=== PATIENT | male | born 1945 | race Caucasian/White ===

== ENCOUNTER → 2017-08-02 | Outpatient (CLI) | payer OTHER ==
[~2017-08-02] MED LIST: ALEN1TAB48 PO; ASPI81CH6 CHEW; ASPI81TA23 PO; ATOR20TA15 PO; CETI10 PO; CITRTAB7 PO; CYAN1TAB24 PO; D200CAP PO; DIAZ5TAB PO; FERR325T18 PO; GUAI600T11 PO; HYDR-3288 PO; METF500T4 PO; METO25TA3 PO; MULTTAB4 PO; NITR0.4S SL; OXYC-424 PO; RANI150T PO; SENN8.6T36 PO; TIZA4TAB PO
== END ==
LOC: CPRE 08:38
PROVIDERS: ATTEND Orthopaedic Surgery Sports Medicine
DX: M16.12 Unilateral primary osteoarthritis, left hip (principal)

== ENCOUNTER 2017-08-16 06:46 | Inpatient (IN) | payer OTHER, MEDICARE ==
[~2017-08-16] VITALS: Ht 180.3 cm; Wt 89.6 kg
[~2017-08-16 06:46] MED LIST changes: -ASPI81CH6 CHEW; -FERR325T18 PO; -GUAI600T11 PO; -HYDR-3288 PO; -METO25TA3 PO; -NITR0.4S SL; -SENN8.6T36 PO
[2017-08-16] MEDS ORDERED: METO25TA3 PO ×2 (07:22)
[2017-08-16] MEDS ORDERED: GUAI600T11 PO (07:28)
[2017-08-16] MEDS ORDERED: SENN8.6T36 PO ×2 (07:28)
[2017-08-16] MEDS ORDERED: FERR325T18 PO (07:28)
[2017-08-16] MEDS ORDERED: NITR0.4S SL (07:28)
[2017-08-16] MEDS ORDERED: METOPROLOL TARTRATE 25 MG TAB PO PRN (07:30)
[2017-08-16] MEDS ORDERED: LACTATED RINGER'S 1000 ML IV PRN (07:30)
[2017-08-16] MEDS ORDERED: SODIUM CHLORID 0.9% 500 ML IV PRN (07:30)
[2017-08-16] MEDS ORDERED: CHLORHEXIDINE GLUCONATE 2 % 1 PACK (2 CLOTHS) TOPICAL PRN (07:30)
[2017-08-16] MEDS ORDERED: POVIDONE IODINE 5% (ANTISEPSIS KIT) 4 APPLICATIONS EACH NARE PRN (07:30)
[2017-08-16] MEDS ORDERED: DEXAMETHASONE SOD PHOS 20 MG/5 ML VIAL IV PUSH ONE (07:30)
[2017-08-16] MEDS ORDERED: ceFAZolin 2 GM PREMIX 50 ML IV SCH (07:45)
[2017-08-16] MEDS ORDERED: CHLORHEXIDINE GLUCONATE 4% SOLN 120 ML BTL TOPICAL SCH (07:45)
[2017-08-16] MEDS ORDERED: VANCOMYCIN 1 GM/200 ML PREMIX IV SCH (07:45)
[2017-08-16] MEDS ORDERED: POVIDONE IODINE 7.5% SCRUB 118 ML BOTTLE TOPICAL SCH (07:45)
[2017-08-16] MEDS ORDERED: TRANEXAMIC PERI-ARTICULAR 3,000 MG/NS 100 ML P-ARTICULR SCH ×2 (08:00)
[2017-08-16] MEDS ORDERED: TRANEXAMIC ACID IV SCH (08:00)
[2017-08-16] MEDS ORDERED: EXPAREL PERI-ARTICULAR INJECTION (TOTAL VOL. 60 ML) P-ARTICULR SCH ×2 (08:00)
[2017-08-16] MEDS ORDERED: SODIUM CHLORIDE 0.9% IV SCH (08:00)
[2017-08-16] MEDS ORDERED: HYDR-3288 PO (08:29)
[2017-08-16] MEDS ORDERED: ASPI81CH6 CHEW (08:29)
[2017-08-16] MEDS ORDERED: ACETAMINOPHEN/HYDROcodone 325 MG/7.5 MG TAB PO PRN (08:30)
[2017-08-16] MEDS ORDERED: Post-op Orders (for Pharmacy) XX ONE (08:30)
[2017-08-16] MEDS ORDERED: MORPHINE SULFATE 4 MG/ML INJ IV PUSH PRN (08:30)
[2017-08-16] MEDS ORDERED: diphenhydrAMINE HCL 50 MG/ML VIAL IV PUSH PRN (08:30)
[2017-08-16] MEDS ORDERED: ONDANSETRON HCL 4 MG/2 ML VIAL IVP PRN (08:30)
[2017-08-16] MEDS ORDERED: GENTAMICIN SULFATE 80 MG/2 ML VIAL ONE (08:58)
[2017-08-16] MEDS: METOPROLOL TARTRATE 25 MG TAB PO SCH ×2 (09:00→20:32)
[2017-08-16] MEDS: FERROUS SULFATE 325 MG (65 MG ELEMENTAL IRON) TAB PO SCH ×2 (09:00→17:05)
--- NOTE | 2017-08-16 10:35 | EKG ---
Date Performed: 08/16/2017 Time Performed: 07:09:48 PTAGE: 72 years EKG: Sinus rhythm RIGHT BUNDLE BRANCH BLOCK ANTEROSEPTAL MYOCARDIAL INFARCTION , OF INDETERMINATE AGE ABNORMAL ECG NO PREVIOUS TRACING DOCTOR: Ricki Kenny Interpretating Date/Time 08/16/2017 10:32:25
--- NOTE | 2017-08-16 11:34 | RADRPT ---
EXAM DATE/TIME: 08/16/2017 09:54 [facility] COMPARISON: No previous studies available for comparison. INDICATIONS : Left total hip replacement. MEDICAL HISTORY : None. SURGICAL HISTORY : None. ENCOUNTER: Initial ACUITY: 1 day PAIN SCORE: Non-responsive. LOCATION: Left Hip FINDINGS: Tube magnified C-arm spot views are centered over the hip. A left hip arthroplasty is in good positio n. No gross fracture or dislocation. Some air within the overlying soft tissues. CONCLUSION: Total hip arthroplasty in good position. Ron Mondragon Jr., MD on August 16, 2017 at 11:31 Board Certified Radiologist. This report was verified electronically.
[2017-08-16] MEDS ORDERED: DO NOT ADM ANY ANTICOAGULANT DRUGS PRN (11:38)
[2017-08-16] MEDS ORDERED: HYDROmorphone HCL PF 0.5 MG/0.5 ML SYRINGE ONE ×2 (11:39→11:42)
[2017-08-16] MEDS ORDERED: *MEPERIDINE 25 MG INJ VIAL PERIprocedural Use ONLY ONE (11:46)
[2017-08-16] MEDS ORDERED: MIDAZOLAM HCL 2 MG/2 ML VIAL ONE (11:49)
[2017-08-16] MEDS ORDERED: MORPHINE SULFATE 4 MG/ML INJ ONE (11:49)
[2017-08-16] MEDS ORDERED: LIDOCAINE HCL 1% PF 5 ML SYRINGE OTHER ONE (12:00)
[2017-08-16] MEDS ORDERED: ROCURONIUM INJ 50 MG/5 ML SYRINGE IV PUSH ONE (12:00)
[2017-08-16] MEDS ORDERED: ESMOLOL HCL 100 MG/10 ML VIAL IV ONE (12:00)
[2017-08-16] MEDS ORDERED: PROPOFOL 200 MG/20 ML AMP IV ONE (12:00)
[2017-08-16] MEDS ORDERED: *morphine SULFATE 8 MG/ML PERIprocedure ONLY ONE (12:02)
--- NOTE | 2017-08-16 12:09 | MP ---
cc: Agustin Alvarez MD DATE OF OPERATION: 08/16/2017 PREOPERATIVE DIAGNOSIS: Left hip osteoarthritis. POSTOPERATIVE DIAGNOSIS: Left hip osteoarthritis. PROCEDURE: Left total hip arthroplasty. SURGEON: Agustin Alvarez MD. ANESTHESIA: Aba Pleitez PA-C ANESTHESIA: General. ESTIMATED BLOOD LOSS: 200 mL COMPLICATIONS: None. IMPLANTS USED: DePuy Corail size 15 Press-Fit high offset femoral stem, size 54 solid [place] Gription cup, 36 mm head, +12 neck. JUSTIFICATION: This patient is a 72-year-old male with history of severe end-stage osteoarthritis involving the left hip. He has severe pain with standing, pain with walking, ambulation, weight-bearing activities and severe pain at rest. He has failed greater than three months of nonoperative conservative treatment to include medication therapy, injections, ambulatory assistive aids, home exercise program, activity modification and weight loss. X-rays of the left hip reveal severe osteoarthritis and [id number] joint space narrowing, subchondral sclerosis, subchondral cysts, osteophyte formation, severe subluxation. The patient was counseled as to the risks, benefits and alternatives to a total hip arthroplasty. The risks were discussed which include but not limited to anesthesia, bleeding, infection, damage to nerves, blood vessels, pain, stiffness, fracture dislocation, blood clots, pulmonary embolism and even . The patient's pain is severe. He favored the benefits over the risks and did wish to proceed with surgery. PROCEDURE IN DETAIL: Written consent was obtained. The patient was identified by name, taken to the operating room and placed supine on the operating table. General anesthesia was administered to include 2 grams of IV Ancef and 1 gram of IV vancomycin. Left and right feet were placed in padded traction boots. The left hip and left lower extremity were prepped and draped using isopropyl and Hibiclens solution and ChloraPrep solution. After a timeout was performed, a longitudinal incision was made over the anterolateral aspect of the left hip. The fascia was incised. Dissection was carried over tensor fascia katherine beneath the rectus femoris to allow exposure of the anterior hip capsule. A capsulotomy incision was performed. An oscillating saw was used to perform a femoral neck cut. The osteoarthritic femoral head and neck component was removed. A #10 blade scalpel was used to excise the labrum. Sequential reaming began at size 47 and was carried through to size 54. Subsequently, a solid [place] Gription cup was implanted in approximately 45 degrees of abduction, 10 degrees of anteversion. The 54 mm cup had good purchase and fixation. A screw hole eliminator was placed, followed by the neutral liner. The liner was impacted in place and tested for stability. Attention was turned to the femur where the leg was externally rotated, extended and adducted. The capsule was released off the undersurface of the greater trochanter to allow for elevation and lateralization of the femur. A box cutting osteotome was used to gain entrance into the intramedullary canal of the femur, followed by canal finder and sequential broaching up to size 15. A calcar planer was used to plane the calcar. Trial head and neck combinations were evaluated and final components implanted. With the current components, the leg could achieve external rotation to 78 degrees and extension all the way down to the ground without evidence of anterior instability or impingement. Fluoroscopic imaging showed appropriate implantation of components. The surgical wound was thoroughly irrigated with sterile saline pulse lavage antibiotic impregnated solution. The fascial layer was closed with #1 Vicryl suture, the subcutaneous layer with 2-0 Vicryl suture, the skin incision closed with Dermabond. Sterile dressing was applied. The patient tolerated the procedure well with no intraoperative complication noted. Aba Pleitez, physician assistant unit forester certified, was present through the entire procedure to include patient positioning and the procedure itself. The medical necessity of a physician assistant unit forester was indicated in this case due to the complexity of the procedure. He assisted with appropriate manipulation of the leg and also retraction of muscles, tendons, bone and neurovascular structures. He assisted with preparation of bone and also implantation of the prosthetic replacement. MD BETI Nascimento/VIRGIL , 11:20 AM , 12:08 PM
[2017-08-16] MEDS: SODIUM CHLOR 0.9% 1000 ML INJ 1,000 ML IV SCH ×2 (12:15→18:27)
[2017-08-16] MEDS ORDERED: HYDROmorphone HCL PF 0.5 MG/0.5 ML SYRINGE IV ONE (12:30)
--- NOTE | 2017-08-16 12:31 | RADRPT ---
EXAM DATE/TIME: 08/16/2017 13:04 [facility] COMPARISON: No previous studies available for comparison. INDICATIONS : Post-op left hip. MEDICAL HISTORY : None. SURGICAL HISTORY : None. ENCOUNTER: Initial ACUITY: 1 day PAIN SCORE: 10/10 LOCATION: Left hip. FINDINGS: Status post placement of a left hip prosthesis. There is good position and alignment of the left hip prosthesis. The bony structures are grossly intact. CONCLUSION: Good position and alignment of the left hip prosthesis. Pa Alvarez MD on August 16, 2017 at 12:29 Board Certified Radiologist. This report was verified electronically.
[2017-08-16] MEDS: ACETAMINOPHEN/HYDROcodone 325 MG/7.5 MG TAB PO PRN ×2 (12:45→20:30)
--- NOTE | 2017-08-16 12:53 | HHI.DCPOC ---
Discharge Care Plan Diagnosis: (1) Primary localized osteoarthrosis, pelvic region and thigh Your Health Problems Are: Difficulty with ADL Goals to Promote Your Health * To prevent worsening of your condition and complications * To maintain your health at the optimal level Directions to Meet Your Goals Take your medications as prescribed Follow your dietary instruction Follow activity as directed Keep your appointments as scheduled Take your immunizations and boosters as scheduled If your symptoms worsen call your PCP, if no PCP go to Urgent Care Center or Emergency Room Smoking is Dangerous to Your Health. Avoid second hand smoke Call the 24-hour hour crisis hotline for domestic abuse at Agustin Pleitez August 16, 2017 12:53
[2017-08-16 13:00] VITALS: BP 161/76; PULSE 95; RESP 18; TEMP 98; O2SAT 98
[2017-08-16] MEDS ORDERED: metFORMIN HCL 500 MG TAB PO SCH (13:00)
[2017-08-16] MEDS ORDERED: GLUCAGON 1 MG/ML VIAL OTHER PRN (14:15)
[2017-08-16] MEDS ORDERED: DEXTROSE 50% IN WATER 50 ML VIAL(D50) IV PUSH PRN (14:15)
[2017-08-16] MEDS ORDERED: ENALAPRILAT 1.25 MG/ML VIAL IV PUSH PRN (14:15)
[2017-08-16 14:52] LABS: AUTOMATED NEUTROPHIL # 13.5 TH/MM3 (1.8-7.7); BASOPHIL % 0.1 % (0.0-2.0); HEMATOCRIT 39.4 % (39.0-51.0); HEMOGLOBIN 13.6 GM/DL (13.0-17.0); LYMPH % 3.9 % (9.0-44.0); LYMPHOCYTE # 0.6 TH/MM3 (1.0-4.8); MEAN CELL VOLUME 93.5 FL (80.0-100.0); MEAN CORPUSCULAR HEMOGLOBIN 32.3 PG (27.0-34.0); MEAN CORPUSCULAR HGB CONC 34.6 % (32.0-36.0); MEAN PLATELET VOLUME 10.3 FL (7.0-11.0); MONO % 1.8 % (0.0-8.0); MONOCYTE # 0.3 TH/MM3 (0-0.9); NEUT % 94.2 % (16.0-70.0); PLATELET COUNT 163 TH/MM3 (150-450); RED BLOOD COUNT 4.21 MIL/MM3 (4.50-5.90); WHITE BLOOD COUNT 14.3 TH/MM3 (4.0-11.0)
[2017-08-16 15:19] LABS: CALCIUM 8.4 MG/DL (8.5-10.1); CREATININE 0.77 MG/DL (0.60-1.30)
[2017-08-16] MEDS: oxyCODONE HCL 20 MG CONTROLLED RELEASE TAB PO SCH (17:06)
[2017-08-16] MEDS: FAMOTIDINE 20 MG TAB PO SCH ×2 (17:11→20:31)
[2017-08-16] MEDS: INSULIN ASPART SUPPLEMENTAL SCALE SQ SCH ×2 (17:12→22:23)
[2017-08-16] MEDS: ATORVASTATIN 20 MG TAB PO SCH (20:31)
[2017-08-16] MEDS ORDERED: ZOLPIDEM TARTRATE 5 MG TAB PO PRN (21:00)
[2017-08-16 21:10] VITALS: BP 124/61; PULSE 86; RESP 17; TEMP 98.8; O2SAT 96
[2017-08-17] VITALS (8 sets, daily range): BP systolic 96–143; BP diastolic 55–69; PULSE 75–89; RESP 17–19; TEMP 97.2–99.2; O2SAT 95–100
[2017-08-17] MEDS: ACETAMINOPHEN/HYDROcodone 325 MG/7.5 MG TAB PO PRN ×6 (01:48→23:22)
[2017-08-17] MEDS: SODIUM CHLOR 0.9% 1000 ML INJ 1,000 ML IV SCH ×3 (04:27→19:22)
[2017-08-17 05:19] LABS: HEMATOCRIT 37.6 % (39.0-51.0); HEMOGLOBIN 12.7 GM/DL (13.0-17.0); MEAN CELL VOLUME 94.8 FL (80.0-100.0); MEAN CORPUSCULAR HEMOGLOBIN 31.9 PG (27.0-34.0); MEAN CORPUSCULAR HGB CONC 33.7 % (32.0-36.0); MEAN PLATELET VOLUME 10.8 FL (7.0-11.0); PLATELET COUNT 158 TH/MM3 (150-450); RED BLOOD COUNT 3.97 MIL/MM3 (4.50-5.90); RED CELL DISTRIBUTION WIDTH 13.2 % (11.6-17.2); WHITE BLOOD COUNT 16.6 TH/MM3 (4.0-11.0)
[2017-08-17] MEDS: oxyCODONE HCL 20 MG CONTROLLED RELEASE TAB PO SCH ×2 (05:57→17:18)
--- NOTE | 2017-08-17 08:22 | PD.ORT.PN ---
Subjective Post Op Day #: 1 Subjective Remarks pain bad last night, better this am. Objective Vitals Vital Signs Date Time Temp Pulse Resp B/P (MAP) Pulse Ox O2 Delivery O2 Flow Rate FiO2 08/17/17 05:49 79 143/69 (93) 08/17/17 03:51 98.5 85 19 108/55 (72) 97 08/17/17 00:39 Nasal Cannula 2.00 08/17/17 00:15 98.6 85 18 127/61 (83) 99 08/16/17 21:10 98.8 86 17 124/61 (82) 96 08/16/17 13:30 89 18 162/74 (103) 96 Nasal Cannula 2 08/16/17 13:00 98.5 92 15 153/81 (105) 96 Nasal Cannula 2 08/16/17 13:00 98.0 95 18 161/76 (104) 98 08/16/17 12:30 90 16 158/78 (104) 95 Nasal Cannula 2 08/16/17 12:15 88 12 155/73 (100) 96 Nasal Cannula 2 08/16/17 12:00 87 13 149/72 (97) 96 Nasal Cannula 2 08/16/17 11:45 90 20 162/93 (116) 100 Nasal Cannula 2 08/16/17 11:38 98.2 90 27 157/97 (117) 95 Nasal Cannula 4 I/O 08/16/17 08/16/17 08/16/17 08/17/17 08/17/17 08/17/17 07:00 15:00 23:00 07:00 15:00 23:00 Intake Total 1520 ml 480 ml Output Total 200 ml 700 ml Balance 1320 ml -220 ml Intake Oral 10 ml 480 ml IV Total 110 ml Other 1400 ml Output Urine Total 700 ml Estimated Blood Loss 200 ml # Bowel Movements 0 Result Diagram: 08/17/17 0420 08/16/17 1436 Imaging Last 24 hours Impressions Hip and Pelvis X-Ray 08/16/17 0823 Signed Impressions: Service Date/Time: Wednesday, August 16, 2017 13:04 - CONCLUSION: Good position and alignment of the left hip prosthesis. Pa Alvarez MD Objective Remarks in bed, nad dressing c/d/i neg homans nvi Assessment & Plan Ortho Post Op Day #: 1 Problem List: Assessment and Plan s/p L BRANDI anterior approach wbat ok to maintain dressing unless saturated lovenox, d/c on asa 81 PT ice d/c planning home with c and pt - cleared today or tomorrow depending on PT f/up dr. gary 2 weeks Agustin Pleitez August 17, 2017 08:22
--- NOTE | 2017-08-17 08:24 | HHI.FF ---
Face to Face Verification Diagnosis: (1) Primary localized osteoarthrosis, pelvic region and thigh Physical Therapy Gait training, Safety evaluation, Transfer training, bed to chair Hip: Total hip, Protocol: Left, Progress to weight bearing Left LE Weight Bearing: WB as tolerated Nursing Nursing: Dressing changes Dressing Changes: Daily dressing change I have seen patient Raul Chambers on 08/17/17. My clinical findings support the need for the requested home health care services because: Limited ability to care for self High risk of falls I certify that my clinical findings support that this patient is homebound because: Post-op weakness Unsteady gait/balance Agustin Pleitez August 17, 2017 08:23
[2017-08-17] MEDS: INSULIN ASPART SUPPLEMENTAL SCALE SQ SCH ×4 (08:39→21:00)
[2017-08-17] MEDS: FAMOTIDINE 20 MG TAB PO SCH ×2 (08:40→19:20)
[2017-08-17] MEDS: METOPROLOL TARTRATE 25 MG TAB PO SCH ×2 (08:40→19:20)
[2017-08-17] MEDS: FERROUS SULFATE 325 MG (65 MG ELEMENTAL IRON) TAB PO SCH ×2 (08:40→17:18)
--- NOTE | 2017-08-17 09:40 | HHI.PR ---
Objective Vitals Vital Signs Date Time Temp Pulse Resp B/P (MAP) Pulse Ox O2 Delivery O2 Flow Rate FiO2 08/17/17 08:30 97.8 78 18 131/62 (85) 99 08/17/17 05:49 79 143/69 (93) 08/17/17 03:51 98.5 85 19 108/55 (72) 97 08/17/17 00:39 Nasal Cannula 2.00 08/17/17 00:15 98.6 85 18 127/61 (83) 99 08/16/17 21:10 98.8 86 17 124/61 (82) 96 08/16/17 13:30 89 18 162/74 (103) 96 Nasal Cannula 2 08/16/17 13:00 98.5 92 15 153/81 (105) 96 Nasal Cannula 2 08/16/17 13:00 98.0 95 18 161/76 (104) 98 08/16/17 12:30 90 16 158/78 (104) 95 Nasal Cannula 2 08/16/17 12:15 88 12 155/73 (100) 96 Nasal Cannula 2 08/16/17 12:00 87 13 149/72 (97) 96 Nasal Cannula 2 08/16/17 11:45 90 20 162/93 (116) 100 Nasal Cannula 2 08/16/17 11:38 98.2 90 27 157/97 (117) 95 Nasal Cannula 4 I/O 08/16/17 08/16/17 08/16/17 08/17/17 08/17/17 08/17/17 07:00 15:00 23:00 07:00 15:00 23:00 Intake Total 1520 ml 480 ml Output Total 200 ml 700 ml Balance 1320 ml -220 ml Intake Oral 10 ml 480 ml IV Total 110 ml Other 1400 ml Output Urine Total 700 ml Estimated Blood Loss 200 ml # Bowel Movements 0 Result Diagram: 08/17/17 0420 08/16/17 1436 Nadia Scruggs PA-C August 17, 2017 9:40 am
--- NOTE | 2017-08-17 09:43 | PD.CONS ---
HPI Service [facility] Hospitalists Consult Requested By Dr. Alvarez Reason for Consult Medical management Primary Care Physician Abi Villegas MD Diagnoses: History of Present Illness 72-year-old male with history of CAD s/p stents 3, HTN, HLD, DM, GERD, arthritis, admitted to [facility] for left total hip arthroplasty by Dr. Alvarez. Hospitalist consulted for medical management. Patient is seen on postop day 1. He has no specific medical complaints including no fever/chills, lightheadedness, dizziness, chest pain, shortness breath, or abdominal complaints. His last bowel movement was 2 days ago on Wednesday. He states he has Senokot at home. Reports his left hip pain is fairly well-controlled with pain medications. He has no other medical complaints to report at this time. Review of Systems Except as stated in HPI: all other systems reviewed are Neg Past Family Social History Allergies: Coded Allergies: No Known Allergies (Unverified , 08/16/17) Past Medical History CAD s/p stents 3 HTN HLD DM on metformin GERD arthritis Past Surgical History Cardiac catheterizations in 2000 and 2008 with total 3 stents placed Appendectomy Umbilical hernia repair Left shoulder rotator cuff repair 2 Right facial surgery status post trauma Reported Medications Eminence (Hydrocodone-Acetaminophen) 7.5-325 mg Tab 1-2 Tab PO Q6H PRN Aspirin Low Dose (Aspirin) 81 Mg Chew 81 Mg CHEW BID 30 Days Reported Nitrostat SL (Nitroglycerin) 0.4 Mg Subl 0.4 Mg SL DIRECTED PRN 1 tablet under the tongue as needed for chest pain. Repeat every 5 minutes for a total of 3 DOSES or call 911 if NO relief. Mucus Relief ER (Guaifenesin) 600 Mg Tab 600 Mg PO BID PRN Ferrous Sulfate 325 Mg (65 Mg Iron) Tablet 130 Mg PO BIDPC Senna-Tabs (Sennosides) 8.6 Mg Tab 17.2 Mg PO BID Metoprolol Tartrate 25 Mg Tab 12.5 Mg PO BID Tizanidine (Tizanidine HCl) 4 Mg Tab 4 Mg PO TID Atorvastatin (Atorvastatin Calcium) 20 Mg Tab 20 Mg PO HS Ranitidine (Ranitidine HCl) 150 Mg Tab 150 Mg PO BID Oxycodone ER (Oxycodone HCl) 15 Mg Tab 1 Tab PO Q6HR PRN Metformin ER (Metformin HCl) 500 Mg Fab 500 Mg PO DAILY With evening meal B12 (Cyanocobalamin) 1,000 Mcg Tab 5,000 Unit PO DAILY Multi Vitamin Mens (Multiple Vitamin) 1 Tab Tab 1 Tab PO DAILY Citracal + D3 Maximum (Calcium Citrate-Vitamin D) 315-250 Mg-Unit Tab 1 Tab PO BID D3 Super Strength (Cholecalciferol) 2,000 Unit Cap 2,000 Units PO BID Aspirin EC (Aspirin) 81 Mg Tabdr 81 Mg PO DAILY Alendronate (Alendronate Sodium) 70 Mg Tab 70 Mg PO WEDNESDAY Active Ordered Medications Current Medications Medications (Trade) Dose Ordered Sig/Tomás Route Start Time Stop Time Status Last Admin Lactated Ringer's 1,000 ml @ 30 mls/hr Q24H PRN IV 08/16/17 07:30 08/19/17 07:29 08/16/17 07:45 Sodium Chloride 500 ml @ 30 mls/hr [id number] PRN IV 08/16/17 07:30 08/19/17 07:29 (Lopressor) 25 mg POOL TABLE OPERATOR PRN PO 08/16/17 07:30 08/19/17 07:29 (Betadine 5% Antisepsis Kit) 1 applic POOL TABLE OPERATOR PRN EACH NARE 08/16/17 07:30 08/19/17 07:29 08/16/17 07:45 (Chlorhexidine 2% Cloth) 3 pack POOL TABLE OPERATOR PRN TOPICAL 08/16/17 07:30 08/19/17 07:29 08/16/17 07:45 (Betadine 7.5% Scrub) 1 applic ONCE TOPICAL 08/16/17 07:45 08/19/17 07:44 (Hibiclens 4% Top Soln) 1 applic ONCE TOPICAL 08/16/17 07:45 08/19/17 07:44 08/16/17 07:45 Cefazolin Sodium/ Dextrose 50 ml @ 100 mls/hr POOL TABLE OPERATOR IV 08/16/17 07:45 08/19/17 07:44 08/16/17 09:22 Vancomycin/Sodium Chloride 200 ml @ 200 mls/hr POOL TABLE OPERATOR IV 08/16/17 07:45 08/19/17 07:44 08/16/17 09:22 (Lipitor) 20 mg HS PO 08/16/17 21:00 08/16/17 20:31 (Ferrous Sulfate) 130 mg BIDPC PO 08/16/17 09:00 08/17/17 08:40 (Lopressor) 12.5 mg BID PO 08/16/17 09:00 08/17/17 08:40 (Zanaflex) 4 mg TID PO 08/16/17 13:00 08/17/17 12:11 (OxyCONTIN CR) 20 mg Q12H PO 08/16/17 17:00 08/17/17 05:57 (Pepcid) 20 mg BID PO 08/16/17 13:00 08/17/17 08:40 Sodium Chloride 1,000 ml @ 100 mls/hr Q10H IV 08/16/17 08:27 08/16/17 12:15 (Lovenox Inj) 40 mg Q24H SQ 08/17/17 10:30 08/26/17 10:31 08/17/17 10:05 (Morphine Inj) 3 mg Q3H PRN IV PUSH 08/16/17 08:30 (Eminence 7.5-325 Mg) 1 tab Q4H PRN PO 08/16/17 08:30 (Eminence 7.5-325 Mg) 2 tab Q4H PRN PO 08/16/17 08:30 08/17/17 10:04 (Theragran M Tab) 1 tab BID PO 08/17/17 21:00 10/16/17 20:59 (Zofran Inj) 4 mg Q6H PRN IVP 08/16/17 08:30 (Colace) 100 mg BID PO 08/17/17 21:00 (Ambien) 5 mg HS PRN PO 08/16/17 21:00 (Benadryl Inj) 25 mg Q6H PRN IV PUSH 08/16/17 08:30 (NovoLOG SUPPLEMENTAL SCALE) 1 ACHS SLIDING SCALE SQ 08/16/17 17:00 08/17/17 12:44 (Glucagon Inj) 1 mg UNSCH PRN OTHER 08/16/17 14:15 (D50w (Vial) Inj) 50 ml UNSCH PRN IV PUSH 08/16/17 14:15 (Vasotec Inj) 1.25 mg Q6H PRN IV PUSH 08/16/17 14:15 Family History Father with enlarged heart, with bone cancer Mother with dementia Sister with CABG 3 vessels Brother with extensive heart disease Social History Prior tobacco use, smoked 1 to 1.5 PPD 43 years, quit in 2000 Denies any alcohol use Denies any illicit drug use Physical Exam Vital Signs Vital Signs Date Time Temp Pulse Resp B/P (MAP) Pulse Ox O2 Delivery O2 Flow Rate FiO2 08/17/17 08:30 97.8 78 18 131/62 (85) 99 08/17/17 05:49 79 143/69 (93) 08/17/17 03:51 98.5 85 19 108/55 (72) 97 08/17/17 00:39 Nasal Cannula 2.00 08/17/17 00:15 98.6 85 18 127/61 (83) 99 08/16/17 21:10 98.8 86 17 124/61 (82) 96 08/16/17 13:30 89 18 162/74 (103) 96 Nasal Cannula 2 08/16/17 13:00 98.5 92 15 153/81 (105) 96 Nasal Cannula 2 08/16/17 13:00 98.0 95 18 161/76 (104) 98 08/16/17 12:30 90 16 158/78 (104) 95 Nasal Cannula 2 08/16/17 12:15 88 12 155/73 (100) 96 Nasal Cannula 2 08/16/17 12:00 87 13 149/72 (97) 96 Nasal Cannula 2 08/16/17 11:45 90 20 162/93 (116) 100 Nasal Cannula 2 08/16/17 11:38 98.2 90 27 157/97 (117) 95 Nasal Cannula 4 Physical Exam GENERAL: Well-nourished, well-developed pleasant elderly male patient in [facility]. SKIN: Warm and dry. No rash. HEAD: Normocephalic. Atraumatic. EYES: Pupils equal and round. No scleral icterus. No injection or drainage. ENT: No nasal bleeding or discharge. Mucous membranes pink and moist. NECK: Supple. Trachea midline. CARDIOVASCULAR: Regular rate and rhythm. No murmur appreciated. RESPIRATORY: No accessory muscle use. Clear to auscultation. Breath sounds equal bilaterally. GASTROINTESTINAL: Abdomen soft, non-tender, nondistended. Normoactive bowel sounds x4. MUSCULOSKELETAL: No obvious deformities. Extremities without clubbing, cyanosis , or edema. Left hip surgical dressing, CDI. NEUROLOGICAL: Awake and alert. No obvious cranial nerve deficits. Motor grossly within normal limits. Moving all extremities spontaneously. Normal speech. PSYCHIATRIC: Appropriate mood and affect; insight and judgment normal. Laboratory Laboratory Tests Test 08/16/17 14:36 08/17/17 04:20 White Blood Count 14.3 16.6 Red Blood Count 4.21 3.97 Hemoglobin 13.6 12.7 Hematocrit 39.4 37.6 Mean Corpuscular Volume 93.5 94.8 Mean Corpuscular Hemoglobin 32.3 31.9 Mean Corpuscular Hemoglobin Concent 34.6 33.7 Red Cell Distribution Width 13.0 13.2 Platelet Count 163 158 Mean Platelet Volume 10.3 10.8 Neutrophils (%) (Auto) 94.2 Lymphocytes (%) (Auto) 3.9 Monocytes (%) (Auto) 1.8 Eosinophils (%) (Auto) 0.0 Basophils (%) (Auto) 0.1 Neutrophils # (Auto) 13.5 Lymphocytes # (Auto) 0.6 Monocytes # (Auto) 0.3 Eosinophils # (Auto) 0.0 Basophils # (Auto) 0.0 CBC Comment DIFF FINAL Differential Comment Blood Urea Nitrogen 15 Creatinine 0.77 Random Glucose 147 Calcium Level 8.4 Sodium Level 142 Potassium Level 4.0 Chloride Level 108 Carbon Dioxide Level 27.0 Anion Gap 7 Estimat Glomerular Filtration Rate 100 Result Diagram: 08/17/17 0420 08/16/17 1436 Imaging Last Impressions Hip and Pelvis X-Ray 08/16/17 0827 Signed Impressions: Service Date/Time: Wednesday, August 16, 2017 13:04 - CONCLUSION: Good position and alignment of the left hip prosthesis. Pa Alvarez MD Hip X-Ray 08/16/17 0000 Signed Impressions: Service Date/Time: Wednesday, August 16, 2017 09:54 - CONCLUSION: Total hip arthroplasty in good position. Ron Mondragon Jr., MD Assessment and Plan Assessment and Plan 72-year-old male with history of CAD s/p stents 3, HTN, HLD, DM, GERD, arthritis, admitted to [facility] for left total hip arthroplasty by Dr. Alvarez. Hospitalist consulted for medical management. S/p Left Total Hip Arthroplasty: surgery done 08/[address] Alvarez. -Continue pain control with Eminence prn, per ortho -DVT prophylaxis with Lovenox per ortho, plan to d/c on aspirin 81mg bid -WBAT -Continue PT HTN/HLD: Chronic, stable -Continue patient's statin, metoprolol 12.5 mg bid -Monitor BP, adjust antihypertensives as needed CAD: s/p stents x3 in 2000, 2008. Chronic. No complaints of chest pain. -Continue patient's aspirin, statin, BB Diabetes Mellitus, type 2: chronic, BG fairly well controlled -Continue SSI for now -Plan to continue patient's metformin upon discharge All other medical conditions stable, continue home medications as appropriate. DVT Prophylaxis: on Lovenox sq Discussed Condition With Patient, RN Nadia Scruggs PA-C August 17, 2017 9:43 am
[2017-08-17] MEDS: ENOXAPARIN SODIUM 40 MG/0.4 ML SYRINGE SQ SCH (10:05)
[2017-08-17] MEDS: MULTIVITAMINS/MINERALS THERAPEUTIC TAB PO SCH (19:20)
[2017-08-17] MEDS: ATORVASTATIN 20 MG TAB PO SCH (19:20)
[2017-08-17] MEDS: DOCUSATE SODIUM 100 MG CAP PO SCH (19:20)
[2017-08-18] VITALS: BP 117/52; PULSE 96; RESP 20; TEMP 98.5; O2SAT 98
[2017-08-18] MEDS: ACETAMINOPHEN/HYDROcodone 325 MG/7.5 MG TAB PO PRN ×3 (04:01→12:54)
[2017-08-18] MEDS: MAGNESIUM HYDROXIDE SUSP 30 ML CUP PO PRN ×2 (05:16→18:03)
[2017-08-18] MEDS: oxyCODONE HCL 20 MG CONTROLLED RELEASE TAB PO SCH ×2 (05:16→17:11)
[2017-08-18 08:00] VITALS: BP 125/61; PULSE 90; RESP 17; TEMP 98.3; O2SAT 94
[2017-08-18] MEDS: INSULIN ASPART SUPPLEMENTAL SCALE SQ SCH ×4 (08:00→20:58)
[2017-08-18 08:04] LABS: AUTOMATED NEUTROPHIL # 11.1 TH/MM3 (1.8-7.7); BASOPHIL % 0.2 % (0.0-2.0); EOSINOPHIL % 0.2 % (0.0-4.0); HEMOGLOBIN 12.1 GM/DL (13.0-17.0); LYMPH % 9.3 % (9.0-44.0); LYMPHOCYTE # 1.3 TH/MM3 (1.0-4.8); MEAN CELL VOLUME 94.6 FL (80.0-100.0); MEAN CORPUSCULAR HEMOGLOBIN 31.8 PG (27.0-34.0); MEAN CORPUSCULAR HGB CONC 33.6 % (32.0-36.0); MEAN PLATELET VOLUME 10.3 FL (7.0-11.0); MONO % 11.6 % (0.0-8.0); MONOCYTE # 1.6 TH/MM3 (0-0.9); NEUT % 78.7 % (16.0-70.0); PLATELET COUNT 142 TH/MM3 (150-450); RED CELL DISTRIBUTION WIDTH 13.4 % (11.6-17.2); WHITE BLOOD COUNT 14.1 TH/MM3 (4.0-11.0)
[2017-08-18 08:25] LABS: AST (GOT) 23 U/L (15-37); BICARBONATE 29.5 MEQ/L (21.0-32.0); BLOOD UREA NITROGEN 11 MG/DL (7-18); CALCIUM 8.6 MG/DL (8.5-10.1); CHLORIDE 106 MEQ/L (98-107); CREATININE 0.72 MG/DL (0.60-1.30); GLOMERULAR FILTRATION RATE 108 ML/MIN (>89); GLUCOSE,RANDOM 140 MG/DL (74-106); SODIUM (NA) 141 MEQ/L (136-145)
[2017-08-18 08:26] LABS: ALT (GPT) 18 U/L (12-78)
[2017-08-18 08:29] LABS: ALKALINE PHOSPHATASE 51 U/L (45-117); TOTAL BILIRUBIN ADULT 0.9 MG/DL (0.2-1.0); TOTAL PROTEIN 6.2 GM/DL (6.4-8.2)
[2017-08-18] MEDS: FAMOTIDINE 20 MG TAB PO SCH ×2 (08:37→21:01)
[2017-08-18] MEDS: DOCUSATE SODIUM 100 MG CAP PO SCH ×2 (08:38→21:00)
[2017-08-18] MEDS: MULTIVITAMINS/MINERALS THERAPEUTIC TAB PO SCH ×2 (08:38→21:01)
[2017-08-18] MEDS: METOPROLOL TARTRATE 25 MG TAB PO SCH ×2 (08:38→21:00)
[2017-08-18] MEDS: FERROUS SULFATE 325 MG (65 MG ELEMENTAL IRON) TAB PO SCH ×2 (08:38→17:11)
--- NOTE | 2017-08-18 09:34 | HHI.PR ---
Subjective Remarks Follow up for left BRANDI, HTN, DM, leukocytosis. The patient reports he had a lot of left hip pain last night, but slightly better today. He has not yet attempted ambulation today. Denies any other medical complaints including no fevers/chills, lightheadedness, dizziness, chest pain, shortness of breath, or abdominal complaints. Objective Vitals Vital Signs Date Time Temp Pulse Resp B/P (MAP) Pulse Ox O2 Delivery O2 Flow Rate FiO2 08/18/17 08:00 98.3 90 17 125/61 (82) 94 08/18/17 00:00 98.5 96 20 117/52 (73) 98 08/17/17 20:00 99.2 89 17 136/63 (87) 96 08/17/17 16:10 97.2 83 18 137/65 (89) 100 08/17/17 11:30 97.2 75 18 96/56 (69) 95 08/17/17 10:35 98 21 I/O 08/17/17 08/17/17 08/17/17 08/18/17 08/18/17 08/18/17 07:00 15:00 23:00 07:00 15:00 23:00 Intake Total 480 ml 960 ml 500 ml Output Total 700 ml 500 ml Balance -220 ml 960 ml 0 ml Intake Oral 480 ml 960 ml 500 ml Output Urine Total 700 ml 500 ml # Voids 5 # Bowel Movements 0 0 0 Result Diagram: 08/18/17 0614 08/18/17 0614 Imaging Last Impressions Hip and Pelvis X-Ray 08/16/17 0827 Signed Impressions: Service Date/Time: Wednesday, August 16, 2017 13:04 - CONCLUSION: Good position and alignment of the left hip prosthesis. Pa Alvarez MD Hip X-Ray 08/16/17 0000 Signed Impressions: Service Date/Time: Wednesday, August 16, 2017 09:54 - CONCLUSION: Total hip arthroplasty in good position. Ron Mondragon Jr., MD Objective Remarks GENERAL: Well-nourished, well-developed pleasant elderly male patient in [facility]. SKIN: Warm and dry. No rash. HEENT: Normocephalic. Atraumatic. Old right facial/orbit scarring from trauma. Pupils equal and round. Mucous membranes pink and moist. CARDIOVASCULAR: Regular rate and rhythm. No murmur appreciated. RESPIRATORY: No accessory muscle use. Clear to auscultation. Breath sounds equal bilaterally. GASTROINTESTINAL: Abdomen soft, non-tender, nondistended. Normoactive bowel sounds x4. MUSCULOSKELETAL: No obvious deformities. Extremities without clubbing, cyanosis , or edema. Left hip surgical dressing, CDI. NEUROLOGICAL: Awake and alert. No obvious cranial nerve deficits. Motor grossly within normal limits. Moving all extremities spontaneously. Normal speech. PSYCHIATRIC: Appropriate mood and affect; insight and judgment normal. Procedures 08/16/17 - left total hip arthroplasty by Dr. Alvarez Medications and IVs Current Medications Medications (Trade) Dose Ordered Sig/Tomás Route Start Time Stop Time Status Last Admin Lactated Ringer's 1,000 ml @ 30 mls/hr Q24H PRN IV 08/16/17 07:30 08/19/17 07:29 08/16/17 07:45 Sodium Chloride 500 ml @ 30 mls/hr [id number] PRN IV 08/16/17 07:30 08/19/17 07:29 (Lopressor) 25 mg SINGER AND UNLOADER PRN PO 08/16/17 07:30 08/19/17 07:29 (Betadine 5% Antisepsis Kit) 1 applic SINGER AND UNLOADER PRN EACH NARE 08/16/17 07:30 08/19/17 07:29 08/16/17 07:45 (Chlorhexidine 2% Cloth) 3 pack SINGER AND UNLOADER PRN TOPICAL 08/16/17 07:30 08/19/17 07:29 08/16/17 07:45 (Betadine 7.5% Scrub) 1 applic ONCE TOPICAL 08/16/17 07:45 08/19/17 07:44 (Hibiclens 4% Top Soln) 1 applic ONCE TOPICAL 08/16/17 07:45 08/19/17 07:44 08/16/17 07:45 Cefazolin Sodium/ Dextrose 50 ml @ 100 mls/hr SINGER AND UNLOADER IV 08/16/17 07:45 08/19/17 07:44 08/16/17 09:22 Vancomycin/Sodium Chloride 200 ml @ 200 mls/hr SINGER AND UNLOADER IV 08/16/17 07:45 08/19/17 07:44 08/16/17 09:22 (Lipitor) 20 mg HS PO 08/16/17 21:00 08/17/17 19:20 (Ferrous Sulfate) 130 mg BIDPC PO 08/16/17 09:00 08/18/17 08:38 (Lopressor) 12.5 mg BID PO 08/16/17 09:00 08/18/17 08:38 (Zanaflex) 4 mg TID PO 08/16/17 13:00 08/18/17 08:38 (OxyCONTIN CR) 20 mg Q12H PO 08/16/17 17:00 08/18/17 05:16 (Pepcid) 20 mg BID PO 08/16/17 13:00 08/18/17 08:37 Sodium Chloride 1,000 ml @ 100 mls/hr Q10H IV 08/16/17 08:27 08/16/17 12:15 (Lovenox Inj) 40 mg Q24H SQ 08/17/17 10:30 08/26/17 10:31 08/17/17 10:05 (Morphine Inj) 3 mg Q3H PRN IV PUSH 08/16/17 08:30 ([place] 7.5-325 Mg) 1 tab Q4H PRN PO 08/16/17 08:30 ([place] 7.5-325 Mg) 2 tab Q4H PRN PO 08/16/17 08:30 08/18/17 08:42 (Theragran M Tab) 1 tab BID PO 08/17/17 21:00 10/16/17 20:59 08/18/17 08:38 (Zofran Inj) 4 mg Q6H PRN IVP 08/16/17 08:30 (Colace) 100 mg BID PO 08/17/17 21:00 08/18/17 08:38 (Ambien) 5 mg HS PRN PO 08/16/17 21:00 (Benadryl Inj) 25 mg Q6H PRN IV PUSH 08/16/17 08:30 (NovoLOG SUPPLEMENTAL SCALE) 1 ACHS SLIDING SCALE SQ 08/16/17 17:00 08/17/17 21:00 (Glucagon Inj) 1 mg UNSCH PRN OTHER 08/16/17 14:15 (D50w (Vial) Inj) 50 ml UNSCH PRN IV PUSH 08/16/17 14:15 (Vasotec Inj) 1.25 mg Q6H PRN IV PUSH 08/16/17 14:15 (Milk Of Franky Rodgers) 30 ml BID PRN PO 08/17/17 23:45 08/18/17 05:16 A/P Assessment and Plan 72-year-old male with history of CAD s/p stents 3, HTN, HLD, DM, GERD, arthritis, admitted to [facility] for left total hip arthroplasty by Dr. Alvarez. Hospitalist consulted for medical management. S/p Left Total Hip Arthroplasty: surgery done 08/[address] Alvarez. -Continue pain control with [place] prn, per ortho -DVT prophylaxis with Lovenox per ortho, plan to d/c on aspirin 81mg bid -WBAT -Continue PT HTN/HLD: Chronic, stable, BP well controlled currently -Continue patient's statin, metoprolol 12.5 mg bid -Monitor BP, adjust antihypertensives as needed CAD: s/p stents x3 in 2000, 2008. Chronic. No complaints of chest pain. -Continue patient's aspirin, statin, BB Diabetes Mellitus, type 2: chronic, BG fairly well controlled -Continue SSI for now -Plan to continue patient's metformin upon discharge Leukocytosis: WBC trended 14.3K --> 16.6K --> 14.1K -trending down -no signs of systemic infection, afebrile, no tachycardia All other medical conditions stable, continue home medications as appropriate. DVT Prophylaxis: on Lovenox sq Nadia Scruggs PA-C August 18, 2017 9:34 am
[2017-08-18] MEDS: SODIUM CHLOR 0.9% 1000 ML INJ 1,000 ML IV SCH ×2 (10:27→20:27)
--- NOTE | 2017-08-18 10:49 | PD.ORT.PN ---
Subjective Post Op Day #: 2 Subjective Remarks pain better today. still having some trouble with PT. Objective Vitals Vital Signs Date Time Temp Pulse Resp B/P (MAP) Pulse Ox O2 Delivery O2 Flow Rate FiO2 08/18/17 08:00 98.3 90 17 125/61 (82) 94 08/18/17 00:00 98.5 96 20 117/52 (73) 98 08/17/17 20:00 99.2 89 17 136/63 (87) 96 08/17/17 16:10 97.2 83 18 137/65 (89) 100 08/17/17 11:30 97.2 75 18 96/56 (69) 95 I/O 08/17/17 08/17/17 08/17/17 08/18/17 08/18/17 08/18/17 07:00 15:00 23:00 07:00 15:00 23:00 Intake Total 480 ml 960 ml 500 ml Output Total 700 ml 500 ml Balance -220 ml 960 ml 0 ml Intake Oral 480 ml 960 ml 500 ml Output Urine Total 700 ml 500 ml # Voids 5 # Bowel Movements 0 0 0 Result Diagram: 08/18/1761308/18/17613 Imaging Last 24 hours Impressions Hip and Pelvis X-Ray 08/16/17826 Signed Impressions: Service Date/Time: Wednesday, August 16, 2017 13:04 - CONCLUSION: Good position and alignment of the left hip prosthesis. Pa Alvarez MD Objective Remarks in chair, nad dressing c/d/i thigh soft neg homans nvi Assessment & Plan Ortho Post Op Day #: 2 Problem List: Assessment and Plan s/p L BRANDI anterior approach wbat ok to maintain dressing unless saturated lovenox, d/c on asa 81 PT ice d/c planning home with hhc and pt - cleared today pending PT eval f/up dr. gary 2 weeks Agustin Pleitez August 18, 2017 10:49
[2017-08-18] MEDS: ENOXAPARIN SODIUM 40 MG/0.4 ML SYRINGE SQ SCH (11:45)
[2017-08-18 12:00] VITALS: BP 101/58; PULSE 76; RESP 17; TEMP 97.3; O2SAT 95
[2017-08-18 16:00] VITALS: BP 99/57; PULSE 81; RESP 17; TEMP 97.5; O2SAT 97
[2017-08-18 20:00] VITALS: BP 94/49; PULSE 78; RESP 17; TEMP 98.1; O2SAT 94
[2017-08-18] MEDS: ATORVASTATIN 20 MG TAB PO SCH (21:01)
[2017-08-19] VITALS: BP 142/70; PULSE 93; RESP 20; TEMP 99; O2SAT 98
[2017-08-19] MEDS: ACETAMINOPHEN/HYDROcodone 325 MG/7.5 MG TAB PO PRN ×3 (01:18→10:38)
[2017-08-19 04:00] VITALS: BP 129/59; PULSE 90; RESP 20; TEMP 98.5; O2SAT 94
[2017-08-19] MEDS: oxyCODONE HCL 20 MG CONTROLLED RELEASE TAB PO SCH (04:07)
[2017-08-19] MEDS: SODIUM CHLOR 0.9% 1000 ML INJ 1,000 ML IV SCH (04:54)
[2017-08-19] MEDS: MAGNESIUM HYDROXIDE SUSP 30 ML CUP PO PRN (05:30)
[2017-08-19 06:46] LABS: HEMATOCRIT 34.1 % (39.0-51.0); HEMOGLOBIN 11.5 GM/DL (13.0-17.0); MEAN CELL VOLUME 94.2 FL (80.0-100.0); MEAN CORPUSCULAR HEMOGLOBIN 31.8 PG (27.0-34.0); MEAN CORPUSCULAR HGB CONC 33.8 % (32.0-36.0); MEAN PLATELET VOLUME 10.4 FL (7.0-11.0); PLATELET COUNT 140 TH/MM3 (150-450); RED BLOOD COUNT 3.62 MIL/MM3 (4.50-5.90); RED CELL DISTRIBUTION WIDTH 12.9 % (11.6-17.2); WHITE BLOOD COUNT 11.2 TH/MM3 (4.0-11.0)
[2017-08-19] MEDS: INSULIN ASPART SUPPLEMENTAL SCALE SQ SCH (08:00)
[2017-08-19 08:03] VITALS: BP 129/59; PULSE 89; RESP 19; TEMP 98.2; O2SAT 97
--- NOTE | 2017-08-19 08:54 | PD.ORT.PN ---
Subjective Post Op Day #: 3 Subjective Remarks pain better today. Objective Vitals Vital Signs Date Time Temp Pulse Resp B/P (MAP) Pulse Ox O2 Delivery O2 Flow Rate FiO2 08/19/17 08:03 98.2 89 19 129/59 (82) 97 08/19/17 06:03 18 08/19/17 04:53 18 08/19/17 04:00 98.5 90 20 129/59 (82) 94 08/19/17 00:00 99.0 93 20 142/70 (94) 98 08/18/17 20:00 98.1 78 17 94/49 (64) 94 08/18/17 16:00 97.5 81 17 99/57 (71) 97 08/18/17 12:00 97.3 76 17 101/58 (72) 95 I/O 08/18/17 08/18/17 08/18/17 08/19/17 08/19/17 08/19/17 07:00 15:00 23:00 07:00 15:00 23:00 Intake Total 500 ml 500 ml 800 ml Output Total 500 ml 800 ml Balance 0 ml 500 ml 0 ml Intake Oral 500 ml 500 ml 800 ml Output Urine Total 500 ml 800 ml # Voids 4 # Bowel Movements 0 1 0 Result Diagram: 08/19/17 0513 08/18/17 0614 Imaging Last 24 hours Impressions Hip and Pelvis X-Ray 08/16/17 0827 Signed Impressions: Service Date/Time: Wednesday, August 16, 2017 13:04 - CONCLUSION: Good position and alignment of the left hip prosthesis. Pa Alvarez MD Objective Remarks in bed, nad dressing c/d/i thigh soft neg homans nvi Assessment & Plan Ortho Post Op Day #: 3 Problem List: Assessment and Plan s/p L BRANDI anterior approach wbat ok to maintain dressing unless saturated lovenox, d/c on asa 81 PT ice d/c planning home with hhc and pt - cleared today f/up dr. agry 2 weeks Agustin Pleitez August 19, 2017 08:54
[2017-08-19] MEDS: METOPROLOL TARTRATE 25 MG TAB PO SCH (08:55)
[2017-08-19] MEDS: FAMOTIDINE 20 MG TAB PO SCH (08:55)
[2017-08-19] MEDS: DOCUSATE SODIUM 100 MG CAP PO SCH (08:55)
[2017-08-19] MEDS: FERROUS SULFATE 325 MG (65 MG ELEMENTAL IRON) TAB PO SCH (08:55)
[2017-08-19] MEDS: MULTIVITAMINS/MINERALS THERAPEUTIC TAB PO SCH (08:55)
[2017-08-19] MEDS: ENOXAPARIN SODIUM 40 MG/0.4 ML SYRINGE SQ SCH (08:59)
--- NOTE | 2017-08-19 09:26 | MD ---
cc: Agustin Alvarez MD DATE OF DISCHARGE: ADMITTING DIAGNOSIS: Severe degenerative osteoarthritis of the left hip. DISCHARGE DIAGNOSIS: Severe degenerative osteoarthritis of the left hip. HISTORY OF PRESENT ILLNESS: Mr. Chambers is a 72-year-old male who presented to [facility] for evaluation by Dr. Agustin Alvarez regarding progressive left hip pain. The patient states the pain is severe, aching sensation aggravated by weightbearing activities. He notes the pain is inhibiting his activities of daily living and his ability to ambulate safely. He has no alleviating factors, although in the past he has tried medications, assistive devices, physical therapy and home exercise program. The patient states he takes chronic pain medication, which does not help his hip pain. He does have x-ray evidence of severe degenerative osteoarthritis of the left hip. While in the office, the patient was counseled on his diagnosis and treatment options. Risk, benefits, indications, and were discussed. The patient did elect to proceed with surgical intervention to include a left total hip arthroplasty. DATE OF SURGERY: 08/16/2017, left total hip arthroplasty, anterior approach. POSTOP: Postop after surgery, the patient admitted to [facility] where he received appropriate medical management, pain control, DVT prophylaxis, as well as physical therapy. DISCHARGE: Once being discharged from the hospital, the patient was cleared to go home where he received home health care and home physical therapy. He is in stable condition. He may weight bear as tolerated with anterior hip precautions. He has been instructed on wound care management. He has also been provided prescriptions for breakthrough pain medication as well as DVT prophylaxis medication. He has been provided a followup appointment approximately 2 weeks from his date of surgery, The patient has asked appropriate questions, which had been answered. The patient is cleared for discharge. Dictated by: DECLAN Clarke Agustin Alvarez MD JWM/TL , 08:56 AM , 09:14 AM
--- NOTE | 2017-08-19 10:50 | HHI.PR ---
Subjective Remarks Doing okay with no complaints of pain. Tolerating diet. Wants to go home today Objective Vitals Vital Signs Date Time Temp Pulse Resp B/P (MAP) Pulse Ox O2 Delivery O2 Flow Rate FiO2 08/19/17 08:03 98.2 89 19 129/59 (82) 97 08/19/17 06:03 18 08/19/17 04:53 18 08/19/17 04:00 98.5 90 20 129/59 (82) 94 08/19/17 00:00 99.0 93 20 142/70 (94) 98 08/18/17 20:00 98.1 78 17 94/49 (64) 94 08/18/17 16:00 97.5 81 17 99/57 (71) 97 08/18/17 12:00 97.3 76 17 101/58 (72) 95 I/O 08/18/17 08/18/17 08/18/17 08/19/17 08/19/17 08/19/17 06:59 14:59 22:59 06:59 14:59 22:59 Intake Total 500 ml 500 ml 800 ml Output Total 500 ml 800 ml Balance 0 ml 500 ml 0 ml Intake Oral 500 ml 500 ml 800 ml Output Urine Total 500 ml 800 ml # Voids 4 # Bowel Movements 0 1 0 Result Diagram: 08/19/17 0513 08/18/17 0614 Objective Remarks GENERAL: This is a well-nourished, well-developed patient, in no apparent distress. CARDIOVASCULAR: Regular rate and rhythm RESPIRATORY: Clear to auscultation. Breath sounds equal bilaterally. No wheezes , rales, or rhonchi. MUSCULOSKELETAL: Extremities without clubbing, cyanosis, or edema. Left hip bandage clean dry and intact. NEURO: Alert & Oriented x4 to person, place, time, situation. Moves all ext x4 Procedures 08/16/17 - left total hip arthroplasty by Dr. Alvarez A/P Assessment and Plan 72-year-old male with history of CAD s/p stents 3, hypertension, hyperlipidemia , diabetes mellitus type 2, GERD, osteoarthritis , admitted to [facility] for left total hip arthroplasty by Dr. Alvarez. Hospitalist consulted for medical management. S/p operative day #3 left Total Hip Arthroplasty (surgery done 08/[address] Alvarez ). -Continue pain control with [place] prn, per ortho -DVT prophylaxis with Lovenox per ortho, plan to d/c on aspirin 81mg bid -WBAT -Continue physical therapy Hypertension, chronic essential- continue with home antihypertensives. Metoprolol. HLD, chronic, stablecontinue with statin. - CAD: s/p stents x3 in 2000, 2008. Chronic. No complaints of chest pain. -Continue patient's aspirin, statin, BB Diabetes Mellitus, type 2: chronic, overall blood sugars Fairly well controlled -Continue SSI for now -Plan to restart patient's Metformin. Leukocytosis, likely due to stress: -trending down -no signs of systemic infection, afebrile, no tachycardia DVT Prophylaxis: on Lovenox sq Discharge Planning Anticipate discharge with home health care today. Rosa Landrum MD August 19, 2017 10:50
[2017-08-19 11:35] VITALS: BP 144/64; PULSE 97; RESP 18; TEMP 98.4; O2SAT 95
[2017-08-19 11:38] VITALS: RESP 18
== END 2017-08-19 12:20 | disposition home health service (06) | DRG 470 ==
LOC: HSDI 06:46 → N06B 13:46
PROVIDERS: ADMIT Orthopaedic Surgery Sports Medicine; ATTEND Orthopaedic Surgery Sports Medicine
PROC: 0SRB04A Replacement of Left Hip Joint with Ceramic on Polyethylene Synthetic Substitute, Uncemented, Open Approach (ICD-10-PCS; principal; 2017-08-16 09:24)
DX: M16.12 Unilateral primary osteoarthritis, left hip (principal); E11.9 Type 2 diabetes mellitus without complications; I10 Essential (primary) hypertension; F32.9 Major depressive disorder, single episode, unspecified; D72.829 Elevated white blood cell count, unspecified; I25.10 Atherosclerotic heart disease of native coronary artery without angina pectoris; E78.5 Hyperlipidemia, unspecified; K21.9 Gastro-esophageal reflux disease without esophagitis; Z79.84 Long term (current) use of oral hypoglycemic drugs; Z79.82 Long term (current) use of aspirin; Z95.5 Presence of coronary angioplasty implant and graft; Z87.891 Personal history of nicotine dependence; I25.2 Old myocardial infarction
CPT/HCPCS: 73502; 76000; 80048; 80053; 82948; 85025; 85027; 86850; 86900; 86901; 93005; 94150; C1776; J0690; J1100; J1170; J1580; J1650; J1815; J2175; J2250; J2270; J3010; J3370; J7030; J7120